=== PATIENT | male | born 1985 | race African-American/Black ===

== ENCOUNTER 2019-12-16 08:58 | Emergency (ER) ==
[~2019-12-16] VITALS: Ht 174 cm; Wt 75.0 kg
[2019-12-16] MEDS ORDERED: CEPHALEXIN500 M1 PO (11:12)
== END 2019-12-16 10:45 | disposition home or self-care (01) ==
LOC: COL.ER 08:58
DX: S61.215A Laceration without foreign body of left ring finger without damage to nail, initial encounter (principal); W26.0XXA Contact with knife, initial encounter; Y92.009 Unspecified place in unspecified non-institutional (private) residence as the place of occurrence of the external cause; Y99.0 Civilian activity done for income or pay

== ENCOUNTER → 2019-12-27 | Outpatient (CLI) | payer OTHER ==
[~2019-12-27] MED LIST: CEPHALEXIN500 M1 PO
[2019-12-27 16:15] VITALS: BP 126/81; PULSE 76; TEMP 98.9
== END ==
LOC: COL.ER 15:59
DX: Z48.02 Encounter for removal of sutures (principal)